=== PATIENT | male | born 2000 | race Native Hawaiian/Other Pacific Islander ===

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

== ENCOUNTER 2022-07-17 02:46 | Emergency (ER) | payer OTHER ==
[~2022-07-17] VITALS: Ht 188 cm; Wt 136.1 kg
[2022-07-17 02:46] VITALS: TEMP 99
[2022-07-17 03:04] LABS: PLATELET COUNT 226 K/uL (142-355)
[2022-07-17 03:13] LABS: POTASSIUM 3.1 mmol/L (3.6-5.2)
[2022-07-17 04:01] VITALS: BP 134/86
== END 2022-07-17 04:12 | disposition home or self-care (01) ==
LOC: ED 02:46
PROVIDERS: Family Medicine
DX: R07.89 Other chest pain (principal); K21.9 Gastro-esophageal reflux disease without esophagitis; F17.290 Nicotine dependence, other tobacco product, uncomplicated
CPT/HCPCS: 36415; 80053; 82550; 83690; 84484; 85027; 93005; 99284